=== PATIENT | female | born 1970 | race African-American/Black ===

== ENCOUNTER 2019-10-21 07:44 | Emergency (ER) | payer BC, OTHER ==
[2019-10-21] MEDS ORDERED: diphenhydrAMINE 50 MG/ML SDV IVPUSH ONE (08:09)
[2019-10-21] MEDS ORDERED: HYDROmorphone 0.5 MG/0.5 ML Syringe IVPUSH ONE (08:10)
[2019-10-21] MEDS ORDERED: Metoclopramide 10 MG/2 ML SDV IVPUSH ONE (08:10)
--- NOTE | 2019-10-21 08:10 | EDM.PDOC ---
ED HPI GENERAL MEDICAL PROBLEM - General Chief Complaint: Headache Stated Complaint: HEADACHE Time Seen by Provider: 10/21/19 08:04 Source of Information: Reports: Patient History Limitations: Reports: No Limitations - History of Present Illness INITIAL COMMENTS - FREE TEXT/NARRATIVE: 49-year-old female of descent whom does not speak [place]ian presents to the ED with a generalized frontal headache. Apparently has been present for 2 days according to her who acts as her spanish medical interpreter. No recent falls or closed head injuries. She is prone prone to bad headaches. Associated nausea without any vomiting. Did not eat or drink much yesterday and nothing so far today. Has taken only some Tylenol for headache relief yesterday. He did not help. Patient has had some recent x-rays of her left upper teeth but apparently no problems were identified on Tuesday or 2 days ago. Patient is mildly photosensitive. Again nausea without any vomiting. No change in visual acuity. No change in ability to walk. Patient denies taking any medications. Denies possibility of . Onset: Gradual Onset Date: 10/20/19 Duration: Hour(s):, Constant Location: Reports: Head (Primarily a severe headache across the frontal aspects of both sides of her scalp) Quality: Reports: Ache ( mildly retro-orbital he. Temporal aspect of the scalp as well.), Throbbing, Other Severity: Moderate (Pounding 8 out of 10) Improves with: Reports: Rest Worsens with: Reports: Other Context: Denies: Activity, Exercise, Lifting, Sick Contact, Trauma Associated Symptoms: Reports: Headaches, Loss of Appetite, Malaise, Nausea/Vomiting (Nausea without vomiting). 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 Denies: Fever, Chills, Malaise, Weakness HEENT: Reports: Other (Photosensitivity.). 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 Heart rate 97 and sinus respiratory to is 13 with O2 sats of 97% room air) Eye Exam: Bilateral Eye: Normal Inspection, PERRL (No gaze palsy.) Throat/Mouth: Normal Inspection, Normal Lips, Normal Oropharynx, Other Head Exam: Atraumatic (Tongue is mildly dry.), Normocephalic Neck: Normal Inspection, Supple, Non-Tender, Full Range of Motion. No: Lymphadenopathy (L), Lymphadenopathy (R) Respiratory/Chest: No Respiratory Distress, Lungs Clear, Normal Breath Sounds Cardiovascular: Normal Peripheral Pulses, Regular Rate, Rhythm, No Edema, No Gallop, No Murmur, No Rub Neuro Exam (Abbreviated): Alert, Oriented, CN II-XII Intact, Normal Cognition, Other (She was able to perform alternating movements with no problem no pronator drift. [id number] assessment normal cranial nerves II to XII intact) Extremities: Normal Inspection, Normal Range of Motion, Non-Tender Psychiatric: Flat Affect Skin Exam: Warm, Dry, Intact, Normal Color, No Rash Course - Vital Signs Last Recorded V/S: Last Vital Signs Temp 36.7 C 10/21/19 07:51 Pulse 76 10/21/19 10:06 Resp 13 10/21/19 07:51 BP 165/76 H 10/21/19 10:06 Pulse Ox 100 10/21/19 10:06 - Orders/Labs/Meds Meds: Medications Discontinued Medications Generic Name Dose Route Start Last Admin Trade Name Ly PRN Reason Stop Dose Admin Diphenhydramine HCl 25 mg 10/21/19 08:09 10/21/19 08:19 Benadryl IVPUSH 10/21/19 08:10 25 mg ONETIME ONE Administration Hydromorphone HCl 0.5 mg 10/21/19 08:10 10/21/19 08:17 Dilaudid IVPUSH 10/21/19 08:11 0.5 mg ONETIME ONE Administration Dextrose/Sodium Chloride 1,000 mls @ 999 mls/hr 10/21/19 08:15 10/21/19 08:17 Dextrose 5%-Normal Saline IV 999 mls/hr ASDIRECTED KAITY Administration Ketorolac Tromethamine 30 mg 10/21/19 08:15 10/21/19 08:20 Toradol IVPUSH 30 mg ONETIME KAITY Administration Metoclopramide HCl 7.5 mg 10/21/19 08:10 10/21/19 08:20 Reglan IVPUSH 10/21/19 08:11 7.5 mg ONETIME ONE Administration - Radiology Interpretation Free Text/Narrative:: 49-year-old female presents to the ED with complaint of a diffuse frontal temporal headache bilaterally perhaps a little worse on the left side as compared to the right. This started yesterday and is persisted all night long. She has not ate or drank much in the last 24 to 48 hours. Prone to headaches. Has not taken any medication today for this headache. Neuro exam is grossly normal. Note history and physical exam were somewhat difficult to obtain due to the patient not speaking [place]ian. 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 Plan patient will receive IV D5 normal saline at open. Given Benadryl 25 mg IV with Toradol 30 mg IV. Given Reglan 7.5 mg IV and Dilaudid 0.5 mg IV for headache relief. - Re-Assessments/Exams Free Text/Narrative Re-Assessment/Exam: 10/21/19 09:22 patient reports her headache is completely gone at this time. She has completed her IV infusion of 1 L. She will be discharged home the care of her to go to sleep for couple hours to break the headache cycle. She will then resume regular diet. Departure - Departure Time of Disposition: :22 Disposition: Home, Self-Care 01 Condition: Fair Clinical Impression: Migraine headache Qualifiers: Migraine type: without aura Status migrainosus presence: without status migrainosus Intractability: not intractable Qualified Code(s): G43.009 - Migraine without aura, not intractable, without status migrainosus - Discharge Information *PRESCRIPTION DRUG MONITORING PROGRAM REVIEWED*: Not Applicable *COPY OF PRESCRIPTION DRUG MONITORING REPORT IN PATIENT MIS: Not Applicable Instructions: Migraine Headache Referrals: PCP,None [Primary Care Provider] - Forms: ED Department Discharge Additional Instructions: Evaluation in the emergency room today in regards to a persistent headache for the last 36 hours across the frontal temporal aspect of both sides of the head. Neurological examination was grossly normal. You were treated with intravenous fluids and medications Toradol 30 mg with Benadryl 25 mg IV and Reglan 7.5 mg IV and Dilaudid 0.5 mg IV for acute headache relief. Suggest home to sleep for a couple of hours to break the headache cycle. Then try and resume regular diet and plenty of fluids today. Sepsis Event Note (ED) - Evaluation Sepsis Screening Result: No Definite Risk - Focused Exam Vital Signs: Vital Signs Temp Pulse Resp BP Pulse Ox 10/21/19 10:06 76 165/76 H 100 10/21/19 08:25 81 165/94 H 95 10/21/19 07:51 36.7 C 97 13 167/104 H 97
[2019-10-21] MEDS ORDERED: Dextrose 5%-0.9% NaCl 1,000 ML IV SCH (08:15)
[2019-10-21] MEDS ORDERED: Ketorolac 30 MG/ML SDV IVPUSH SCH (08:15)
== END 2019-10-21 10:08 | disposition home or self-care (01) ==
LOC: JD.ED 07:44
DX: G43.009 Migraine without aura, not intractable, without status migrainosus (principal)
CPT/HCPCS: 96361; 96374; 96375; 99283; J1170; J1200; J1885; J2765; J7042

== ENCOUNTER 2019-10-30 10:44 | Emergency (ER) | payer OTHER ==
[2019-10-30] MEDS ORDERED: Sodium Chloride 0.9% 10 ML Syringe FLUSH PRN (11:22)
[2019-10-30] MEDS ORDERED: Sodium Chloride 0.9% 1,000 ML IV ONE (11:22)
[2019-10-30] MEDS ORDERED: diphenhydrAMINE 50 MG/ML SDV IVPUSH ONE (11:22)
[2019-10-30] MEDS ORDERED: Metoclopramide 10 MG/2 ML SDV IVPUSH ONE (11:22)
[2019-10-30] MEDS ORDERED: Ketorolac 30 MG/ML SDV IVPUSH ONE (11:22)
--- NOTE | 2019-10-30 11:38 | EDM.PDOC ---
ED HPI GENERAL MEDICAL PROBLEM - General Chief Complaint: Headache Stated Complaint: HEADACHE Time Seen by Provider: 10/30/19 11:09 Source of Information: Reports: Patient, RN Notes Reviewed History Limitations: Reports: Language Barrier (pt is primarily non italian speaking; in room to translate.) - History of Present Illness INITIAL COMMENTS - FREE TEXT/NARRATIVE: Patient is a 49-year-old female who presents to the ED for the evaluation of her headache. Patient is primarily non-Barbadian speaking, but her is in the room to translate for us. He states that she developed a headache, mostly on the right side of her head today. She had one like this last Tuesday and came to this ER for management. Medications were given, and this seemed to help her at that time. The states she is not known to have headaches in the past. So she does not have a history of migraines. She does not take any regular medications. He denies any other past medical history that his has. notes that she was feeling well up until these headaches started, but she is not had any fevers or chills, cough/shortness of breath, nausea/vomiting/diarrhea. She might be a little light sensitive, but is not sound sensitive. Her blood pressure at time of triage was 138/86, the and a recheck of this elicited 159/99. Right Headache Pain Score (Numeric/FACES): 4 - Related Data Allergies Allergy/AdvReac Type Severity Reaction Status Date / Time No Known Allergies Allergy Verified 10/21/19 08:03 Home Meds: Home Meds Acetaminophen/Butalbital/Caff [Fioricet 325-50-40 MG] 1 each PO Q4H PRN #15 tab 10/30/19 [Rx] Past Medical History Neurological History: Reports: Migraines Social & Family History - Family History Family Medical History: Noncontributory - Tobacco Use Smoking Status *Q: Never Smoker - Caffeine Use Caffeine Use: Reports: Soda, Tea - Recreational Drug Use Recreational Drug Use: No - Living Situation & Occupation Living situation: Reports: Occupation: Unemployed ED ROS GENERAL - Review of Systems Review Of Systems: Comprehensive ROS is negative, except as noted in HPI. - Physical Exam Exam: See Below Exam Limited By: No Limitations General Appearance: Alert, WD/WN, No Apparent Distress Eye Exam: Bilateral Eye: EOMI, Normal Inspection, PERRL Throat/Mouth: Normal Inspection, Normal Lips, Normal Teeth, Normal Gums, Normal Oropharynx, Normal Voice, No Airway Compromise Head Exam: Atraumatic, Normocephalic Neck: Normal Inspection Respiratory/Chest: No Respiratory Distress, Lungs Clear, Normal Breath Sounds, No Accessory Muscle Use, Chest Non-Tender Cardiovascular: Normal Peripheral Pulses, Regular Rate, Rhythm, No Murmur Neuro Exam (Abbreviated): Alert, Oriented, Normal Cognition, No Motor/Sensory Deficits Extremities: Normal Inspection, Normal Capillary Refill Psychiatric: Normal Affect, Normal Mood Skin Exam: Warm, Dry, Intact, Normal Color, No Rash Course - Vital Signs Last Recorded V/S: Last Vital Signs Temp 98.6 F 10/30/19 10:59 Pulse 86 10/30/19 10:59 Resp 14 10/30/19 10:59 BP 138/86 10/30/19 10:59 Pulse Ox 98 10/30/19 10:59 - Orders/Labs/Meds Orders: Active Orders 24 hr Category Date Time Status Peripheral IV Care [RC] . DIRECTED Care 10/30/19 11:22 Active Sodium Chloride 0.9% [Saline Flush] Med 10/30/19 11:22 Active 10 ml FLUSH ASDIRECTED PRN Peripheral IV Insertion Adult [OM.PC] Routine Oth 10/30/19 11:22 Ordered Medication Orders Sodium Chloride (Saline Flush) 10 ml FLUSH ASDIRECTED PRN PRN Reason: Keep Vein Open Last Admin: 10/30/19 11:32 Dose: 10 ml Documented by: EL Labs: Laboratory Tests 10/30/19 10/30/19 Range/Units 11:34 11:34 WBC 6.16 (3.98-10.04) K/mm3 RBC 4.43 (3.98-5.22) M/mm3 Hgb 12.0 (11.2-15.7) gm/dl Hct 36.5 (34.1-44.9) % MCV 82.4 (79.4-94.8) fl MCH 27.1 (25.6-32.2) pg MCHC 32.9 (32.2-35.5) g/dl RDW Std Deviation 38.3 (36.4-46.3) fL Plt Count 287 (182-369) K/mm3 MPV 9.9 (9.4-12.3) fl Neut % (Auto) 34.8 (34.0-71.1) % Lymph % (Auto) 48.4 (19.3-51.7) % Warren % (Auto) 10.9 (4.7-12.5) % Eos % (Auto) 5.2 (0.7-5.8) Baso % (Auto) 0.5 (0.1-1.2) % Neut # (Auto) 2.15 (1.56-6.13) K/mm3 Lymph # (Auto) 2.98 (1.18-3.74) K/mm3 Warren # (Auto) 0.67 H (0.24-0.36) K/mm3 Eos # (Auto) 0.32 (0.04-0.36) K/mm3 Baso # (Auto) 0.03 (0.01-0.08) K/mm3 Sodium 135 L (136-145) mEq/L Potassium 3.6 (3.5-5.1) mEq/L Chloride 98 (98-107) mEq/L Carbon Dioxide 24 (21-32) mEq/L Anion Gap 16.6 H (5-15) BUN 12 (7-18) mg/dL Creatinine 1.0 (0.55-1.02) mg/dL Est Cr Clr Drug Dosing TNP Estimated GFR (MDRD) > 60 (>60) mL/min BUN/Creatinine Ratio 12.0 L (14-18) Glucose 271 H (74-106) mg/dL Calcium 8.9 (8.5-10.1) mg/dL Magnesium 1.8 (1.8-2.4) mg/dl Total Bilirubin 0.5 (0.2-1.0) mg/dL AST 25 (15-37) U/L ALT 32 (14-59) U/L Alkaline Phosphatase 64 (46-116) U/L Total Protein 7.8 (6.4-8.2) g/dl Albumin 3.5 (3.4-5.0) g/dl Globulin 4.3 gm/dL Albumin/Globulin Ratio 0.8 L (1-2) Meds: Medications Generic Name Dose Route Start Last Admin Trade Name Freq PRN Reason Stop Dose Admin Sodium Chloride 10 ml 10/30/19 11:22 10/30/19 11:32 Saline Flush FLUSH 10 ml ASDIRECTED PRN Administration Keep Vein Open Discontinued Medications Generic Name Dose Route Start Last Admin Trade Name Ly PRN Reason Stop Dose Admin Diphenhydramine HCl 25 mg 10/30/19 11:22 10/30/19 11:40 Benadryl IVPUSH 10/30/19 11:23 25 mg ONETIME ONE Administration Sodium Chloride 1,000 mls @ 999 mls/hr 10/30/19 11:22 10/30/19 11:31 Normal Saline IV 10/30/19 12:22 999 mls/hr ASDIRECTED ONE Administration Ketorolac Tromethamine 30 mg 10/30/19 11:22 10/30/19 11:32 Toradol IVPUSH 10/30/19 11:23 30 mg ONETIME ONE Administration Metoclopramide HCl 10 mg 10/30/19 11:22 10/30/19 11:32 Reglan IVPUSH 10/30/19 11:23 10 mg ONETIME ONE Administration - Re-Assessments/Exams Free Text/Narrative Re-Assessment/Exam: 10/30/19 11:38 Patient presents to the ED for evaluation of her headache. She will be given some IV fluids, along with IV medications for management, CBC, CMP and magnesium to be obtained for initial laboratory evaluation. 10/30/19 12:44 Patient notes that her headache is much better. Blood sugar is mildly elevated at 217, the states that she did eat a little bit of bread prior to coming to the ER. She is ready to go home at this time. Departure - Departure Time of Disposition: 12:48 Disposition: Home, Self-Care 01 Condition: Good Clinical Impression: Tension-type headache, Elevated BP without diagnosis of hypertension - Discharge Information *PRESCRIPTION DRUG MONITORING PROGRAM REVIEWED*: No *COPY OF PRESCRIPTION DRUG MONITORING REPORT IN PATIENT MIS: No Instructions: Tension Headache, Adult, [id number], Preventing Hypertension Referrals: PCP,None [Primary Care Provider] - Forms: ED Department Discharge Additional Instructions: You were evaluated in the ED for your headache. You were given a combination of medications and IV fluid for management. This did seem to provide you pretty good relief of your symptoms. Recommend that you go home and rest in a quiet, darkened room. Try also to keep well hydrated. Lab evaluation demonstrated no focal abnormalities like electrolyte issues that could be causing your headaches. Your blood pressure was mildly elevated while in the ER, I recommend that you go home and monitor your blood pressure in a calm restful state, after you have been sitting for at least 5 minutes. Keep a record of this, and establish care with a primary care provider for further management of your overall health and wellbeing. You may or may not need to be started on some blood pressure medications. You were given a prescription for Fioricet, this is a antimigraine medication for your headache specifically, you may take 1 or 2 tablets at the onset of a headache every 4 hours, do not exceed 6 tablets in a 24-hour time span. Please return to the ED if your symptoms should change or worsen. Sepsis Event Note (ED) - Evaluation Sepsis Screening Result: No Definite Risk - Focused Exam Vital Signs: Vital Signs Temp Pulse Resp BP Pulse Ox 10/30/19 10:59 98.6 F 86 14 138/86 98 - My Orders Last 24 Hours: My Active Orders 10/30/19 11:22 Peripheral IV Care [RC] . DIRECTED Sodium Chloride 0.9% [Saline Flush] 10 ml FLUSH ASDIRECTED PRN Peripheral IV Insertion Adult [OM.PC] Routine - Assessment/Plan Last 24 Hours: My Active Orders 10/30/19 11:22 Peripheral IV Care [RC] . DIRECTED Sodium Chloride 0.9% [Saline Flush] 10 ml FLUSH ASDIRECTED PRN Peripheral IV Insertion Adult [OM.PC] Routine
== END 2019-10-30 13:09 | disposition home or self-care (01) ==
LOC: JD.ED 10:44
DX: G44.209 Tension-type headache, unspecified, not intractable (principal); R03.0 Elevated blood-pressure reading, without diagnosis of hypertension
CPT/HCPCS: 36415; 80053; 83735; 85025; 96361; 96374; 96375; 99284; J1200; J1885; J2765; J7030; 99283

== ENCOUNTER 2020-01-09 15:16 | Emergency (ER) | payer OTHER ==
--- NOTE | 2020-01-09 17:34 | EDM.PDOC ---
ED HPI GENERAL MEDICAL PROBLEM - General Chief Complaint: Cardiovascular Problem Stated Complaint: HEADACHE/HIGH BP Time Seen by Provider: 01/09/20 17:24 Source of Information: Reports: Patient History Limitations: Reports: No Limitations - History of Present Illness INITIAL COMMENTS - FREE TEXT/NARRATIVE: 49-year-old female of descent. She presents to the ED with a diffuse right hemicranial headache which she reports has been constant for the last month. History was primarily relayed to me by her who speaks her tribe tongue. Patient apparently does not speak [place]ic but seems to have a pretty good grasp and understanding of the [place]ic language. Worse the last 24 to 48 hours with constant throbbing pulsating particular right parietal occipital lobe. Associated mild photophobia and nausea. No vomiting has occurred. 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 Headache is worse when she bends over. She was seen through the ED in the latter part of October with headache symptoms which have only worsened since that time. Patient has been taking Fioricet tablets on a as needed basis for headache pain relief but indicates they are not helping at all anymore. She was identified to be hypertensive at that time but not started on any antihypertensive meds. Blood pressure at this time is markedly elevated at 178/110. This is after being in the ED for an hour and a half and relaxing. Initial blood pressure was reported as 188/111. Lab test done in October reviewed and she did not have any renal dysfunction at that time. She denies any possibility of . No previous abdominal surgery. She states blood pressure problems run in her family. She currently is on no medication. No history of migraine headaches. Onset: Other ( Headaches gradually getting worse over the last 2 months. More constant the last month. ) Duration: Day(s): Location: Reports: Head (A right hemicranial headache parieto-occipital.) Quality: Reports: Ache, Throbbing, Other (Seating. She has no history of migraines.) Improves with: Reports: Rest (Lying flat feels the best.) Worsens with: Reports: Other (Bending over and standing back up seems to make it worse.) Context: Reports: Other (Continues occurrence of). Denies: Activity, Exercise, Lifting, Sick Contact, Trauma Associated Symptoms: Reports: Headaches, Loss of Appetite, Malaise, Nausea/Vomiting. Denies: Confusion ( almost daily headaches since early October.), Chest Pain, Cough, cough w sputum, Diaphoresis, Fever/Chills, Rash, Seizure (Nausea with no vomiting), Shortness of Breath, Syncope, Weakness Treatments [employer]: Reports: Acetaminophen Head Pain Score (Numeric/FACES): 9 - Related Data Allergies Allergy/AdvReac Type Severity Reaction Status Date / Time No Known Allergies Allergy Verified 01/09/20 15:29 Home Meds: Home Meds Acetaminophen/Butalbital/Caff [Fioricet 325-50-40 MG] 1 each PO Q4H PRN #15 tab 10/30/19 [Rx] Cefdinir [Omnicef] 300 mg PO BID #20 cap 01/09/20 [Rx] Losartan [Cozaar] 100 mg PO DAILY #30 tab 01/09/20 [Rx] amLODIPine [Norvasc] 10 mg PO DAILY #30 tab 01/09/20 [Rx] Past Medical History - Past Health History Medical/Surgical History: Denies Medical/Surgical History Neurological History: Reports: Migraines Social & Family History - Family History Family Medical History: No Pertinent Family History - Tobacco Use Tobacco Use Status *Q: Never Tobacco User - Caffeine Use Caffeine Use: Reports: Coffee - Recreational Drug Use Recreational Drug Use: No - Living Situation & Occupation Living situation: Reports: Occupation: Unemployed ED ROS GENERAL - Review of Systems Review Of Systems: See Below Constitutional: Reports: Fatigue, Decreased Appetite. Denies: Fever, Chills, Malaise, Weakness HEENT: Reports: Other. Denies: Glasses (Mild photophobia.) Respiratory: Reports: No Symptoms Cardiovascular: Reports: No Symptoms Endocrine: Reports: Fatigue GI/Abdominal: Reports: Nausea : Reports: No Symptoms Musculoskeletal: Reports: Neck Pain, Back Pain, Other (Vaginal knee) Skin: Reports: No Symptoms ( pain) Neurological: Reports: Headache. Denies: Confusion, Dizziness, Numbness, Paresthesia, Pre-Existing Deficit, Seizure, Syncope, Tingling, Trouble Speaking, Difficulty Walking, Weakness Psychiatric: Reports: No Symptoms Hematologic/Lymphatic: Reports: No Symptoms Immunologic: Reports: No Symptoms ED EXAM, GENERAL - Physical Exam Exam: See Below Exam Limited By: No Limitations General Appearance: Alert, WD/WN, No Apparent Distress, Other (Temperature is 36.1. Heart rate was 77 and sinus with respiratory of 22/min O2 sats 100% room air BP initially 188 111 it has not come down much in the last hour and a half in observation at. It is still 176 109. This suggest the patient does not fact have chronic essential hypertension and is currently not being treated for this.) Eye Exam: Right Eye: Other (Attempted to look at her fundi but this proved to be futile due to significant pupillary contraction and myosis. I could visualize only in very minimal portion of either ), Bilateral Eye: Normal Inspection, PERRL (No blepharal pallor or scleral icterus.) Ears: Normal TMs Throat/Mouth: Normal Inspection, Normal Lips, Normal Teeth, Normal Oropharynx, Other Head: Atraumatic, Normocephalic (Uvula is in the midline), Facial Tenderness. No: Facial Swelling Neck: Normal Inspection, Supple, Non-Tender, Full Range of Motion. No: Carotid Bruit, Lymphadenopathy (L), Lymphadenopathy (R), Thyromegaly Respiratory/Chest: No Respiratory Distress, Lungs Clear, Normal Breath Sounds, Chest Non-Tender Cardiovascular: Normal Peripheral Pulses, Regular Rate, Rhythm, No Edema, No Gallop, No Murmur, No Rub Peripheral Pulses: 2+: Carotid (L), Carotid (R), Posterior Tibial (L), Posterior Tibial (R), Dorsalis Pedis (L), Dorsalis Pedis (R) GI/Abdominal: Normal Bowel Sounds, Soft, Non-Tender, No Organomegaly, No Mass, Pelvis Stable, Other (No surgical scars.). No: Guarding, Rigid, Rebound Back Exam: Normal Inspection, Full Range of Motion. No: CVA Tenderness (L), CVA Tenderness (R) Extremities: Normal Inspection, Normal Range of Motion, Non-Tender, No Pedal Edema Neurological: Alert, Oriented, CN II-XII Intact, Normal Cognition Psychiatric: Normal Affect, Normal Mood Skin Exam: Warm, Dry, Intact, Normal Color, No Rash #1 Interpretation EKG Date: 01/09/20 Time: 17:58 Rhythm: NSR Rate (Beats/Min): 72 [place]: Normal QRS: Other (RSR prime wave V1 consider normal variant) ST-T: Other (T wave inversion V3 to V6 leads as well as leads II, III and aVF. T wave flattening in leads I and aVL consider possibility of inferior apical wall ischemia.) Course - Vital Signs Last Recorded V/S: Last Vital Signs Temp 36.1 C 01/09/20 15:22 Pulse 68 01/09/20 16:45 Resp 22 H 01/09/20 15:22 BP 246/110 H 01/09/20 18:25 Pulse Ox 99 01/09/20 16:45 - Orders/Labs/Meds Orders: Active Orders 24 hr Category Date Time Status EKG Documentation Completion [RC] STAT Care 01/09/20 17:40 Active Sodium Chloride 0.9% [Normal Saline] 1,000 ml Med 01/09/20 17:45 Active IV ASDIRECTED Medication Orders Sodium Chloride (Normal Saline) 1,000 mls @ 150 mls/hr IV ASDIRECTED KAITY Last Admin: 01/09/20 18:23 Dose: 150 mls/hr Documented by: ESTEVAN Labs: Laboratory Tests 01/09/20 01/09/20 01/09/20 Range/Units 17:45 18:00 18:00 WBC 7.78 (3.98-10.04) K/mm3 RBC 4.56 (3.98-5.22) M/mm3 Hgb 12.2 (11.2-15.7) gm/dl Hct 38.1 (34.1-44.9) % MCV 83.6 (79.4-94.8) fl MCH 26.8 (25.6-32.2) pg MCHC 32.0 L (32.2-35.5) g/dl RDW Std Deviation 39.7 (36.4-46.3) fL Plt Count 404 H D (182-369) K/mm3 MPV 9.6 (9.4-12.3) fl Neut % (Auto) 33.8 L (34.0-71.1) % Lymph % (Auto) 43.8 (19.3-51.7) % [place] % (Auto) 8.1 (4.7-12.5) % Eos % (Auto) 13.5 H (0.7-5.8) Baso % (Auto) 0.5 (0.1-1.2) % Neut # (Auto) 2.63 (1.56-6.13) K/mm3 Lymph # (Auto) 3.41 (1.18-3.74) K/mm3 [place] # (Auto) 0.63 H (0.24-0.36) K/mm3 Eos # (Auto) 1.05 H (0.04-0.36) K/mm3 Baso # (Auto) 0.04 (0.01-0.08) K/mm3 Sodium 137 (136-145) mEq/L Potassium 4.5 (3.5-5.1) mEq/L Chloride 99 (98-107) mEq/L Carbon Dioxide 28 (21-32) mEq/L Anion Gap 14.5 (5-15) BUN 8 (7-18) mg/dL Creatinine 0.8 (0.55-1.02) mg/dL Est Cr Clr Drug Dosing TNP Estimated GFR (MDRD) > 60 (>60) mL/min BUN/Creatinine Ratio 10.0 L (14-18) Glucose 125 H (74-106) mg/dL Calcium 9.9 (8.5-10.1) mg/dL Total Bilirubin 0.3 (0.2-1.0) mg/dL AST 26 (15-37) U/L ALT 24 (14-59) U/L Alkaline Phosphatase 95 (46-116) U/L Troponin I < 0.017 (0.00-0.056) ng/mL C-Reactive Protein 1.2 H* (<1.0) mg/dL Total Protein 8.8 H (6.4-8.2) g/dl Albumin 3.6 (3.4-5.0) g/dl Globulin 5.2 gm/dL Albumin/Globulin Ratio 0.7 L (1-2) TSH 3rd Generation (0.358-3.74) uIU/mL Urine Color Yellow (Yellow) Urine Appearance Clear (Clear) Urine pH 6.5 (5.0-8.0) Ur Specific [place] 1.015 (1.005-1.030) Urine Protein Negative (Negative) Urine Glucose (UA) 2+ H (Negative) Urine Ketones Negative (Negative) Urine Occult Blood Negative (Negative) Urine Nitrite Negative (Negative) Urine Bilirubin Negative (Negative) Urine Urobilinogen 0.2 (0.2-1.0) Ur Leukocyte Esterase Negative (Negative) Urine RBC 0-5 (0-5) /hpf Urine WBC 0-5 (0-5) /hpf Ur Squamous Epith Cells 5-10 H (0-5) /hpf Urine Bacteria Moderate H (FEW) /hpf Urine Mucus Few (FEW) /hpf 01/09/20 Range/Units 18:00 WBC (3.98-10.04) K/mm3 RBC (3.98-5.22) M/mm3 Hgb (11.2-15.7) gm/dl Hct (34.1-44.9) % MCV (79.4-94.8) fl MCH (25.6-32.2) pg MCHC (32.2-35.5) g/dl RDW Std Deviation (36.4-46.3) fL Plt Count (182-369) K/mm3 MPV (9.4-12.3) fl Neut % (Auto) (34.0-71.1) % Lymph % (Auto) (19.3-51.7) % Crosby % (Auto) (4.7-12.5) % Eos % (Auto) (0.7-5.8) Baso % (Auto) (0.1-1.2) % Neut # (Auto) (1.56-6.13) K/mm3 Lymph # (Auto) (1.18-3.74) K/mm3 [place] # (Auto) (0.24-0.36) K/mm3 Eos # (Auto) (0.04-0.36) K/mm3 Baso # (Auto) (0.01-0.08) K/mm3 Sodium (136-145) mEq/L Potassium (3.5-5.1) mEq/L Chloride (98-107) mEq/L Carbon Dioxide (21-32) mEq/L Anion Gap (5-15) BUN (7-18) mg/dL Creatinine (0.55-1.02) mg/dL Est Cr Clr Drug Dosing Estimated GFR (MDRD) (>60) mL/min BUN/Creatinine Ratio (14-18) Glucose (74-106) mg/dL Calcium (8.5-10.1) mg/dL Total Bilirubin (0.2-1.0) mg/dL AST (15-37) U/L ALT (14-59) U/L Alkaline Phosphatase (46-116) U/L Troponin I (0.00-0.056) ng/mL C-Reactive Protein (<1.0) mg/dL Total Protein (6.4-8.2) g/dl Albumin (3.4-5.0) g/dl Globulin gm/dL Albumin/Globulin Ratio (1-2) TSH 3rd Generation 1.079 (0.358-3.74) uIU/mL Urine Color (Yellow) Urine Appearance (Clear) Urine pH (5.0-8.0) Ur Specific [place] (1.005-1.030) Urine Protein (Negative) Urine Glucose (UA) (Negative) Urine Ketones (Negative) Urine Occult Blood (Negative) Urine Nitrite (Negative) Urine Bilirubin (Negative) Urine Urobilinogen (0.2-1.0) Ur Leukocyte Esterase (Negative) Urine RBC (0-5) /hpf Urine WBC (0-5) /hpf Ur Squamous Epith Cells (0-5) /hpf Urine Bacteria (FEW) /hpf Urine Mucus (FEW) /hpf Meds: Medications Generic Name Dose Route Start Last Admin Trade Name Ly PRN Reason Stop Dose Admin Sodium Chloride 1,000 mls @ 150 mls/hr 01/09/20 17:45 01/09/20 18:23 Normal Saline IV 150 mls/hr ASDIRECTED KAITY Administration Discontinued Medications Generic Name Dose Route Start Last Admin Trade Name Ly PRN Reason Stop Dose Admin Amlodipine Besylate 10 mg 01/09/20 17:40 01/09/20 18:25 Norvasc PO 01/09/20 17:41 10 mg NOW STA Administration Diphenhydramine HCl 25 mg 01/09/20 17:57 01/09/20 18:18 Benadryl IVPUSH 01/09/20 17:58 25 mg ONETIME ONE Administration Hydralazine HCl 10 mg 01/09/20 17:39 01/09/20 18:15 Apresoline IVPUSH 01/09/20 17:40 10 mg ONETIME ONE Administration Hydromorphone HCl 1 mg 01/09/20 17:56 01/09/20 18:20 Dilaudid IVPUSH 01/09/20 17:57 1 mg ONETIME ONE Administration Losartan Potassium 100 mg 01/09/20 17:41 01/09/20 18:24 Cozaar PO 01/09/20 17:42 100 mg NOW STA Administration Metoclopramide HCl 7.5 mg 01/09/20 17:56 01/09/20 18:13 Reglan IVPUSH 01/09/20 17:57 7.5 mg ONETIME ONE Administration - Radiology Interpretation Free Text/Narrative:: 49-year-old female of descent presents to the ED with basically a chronic daily headache for at least a month and headaches dating back to early October on a near daily basis. Headache has been gradually intensifying is constant described as throbbing and pulsating and worse over the last 48 hours. She feels it primarily in the right hemicranium particular parieto-occipital lobe. Associated mild stiffness of right neck on full flexion. 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 There is been no obvious change in balance or visual acuity. Associated nausea due to the intensity headache with no vomiting. Patient has been using Fioricet intermittently for headache relief but currently is not helping at all. Exam does not reveal any obvious acute problems with heart lungs abdomen or extremities. Cranial nerves II to XII are intact. Attempts at endoscopy done but due to pupillary constriction I could not visualize the retina with any degree of certainty in terms of AV nicking or abnormalities to suggest papilledema. Plan she will have repeat labs performed and a urinalysis. CT head will be done. She received IV hydralazine 10 mg and oral amlodipine 10 mg and losartan 100 mg by mouth. She will also receive medications for headache Dilaudid 1 mg IV with Benadryl 25 mg IV and Reglan 7.5 mg IV. - Re-Assessments/Exams Free Text/Narrative Re-Assessment/Exam: 01/09/20 19:44 Hematology reveals a normal white count at 7.78 with 33.8% neutrophils. There is a mild right shift with 43.8% lymphocytes. This suggest possible underlying viral infection. Hemoglobin is 12.2 with hematocrit of 38.1. Sodium is 137 with a potassium of 4.5. Chloride was 99 with a bicarb of 28. Anion gap is 14.5 with a BUN of 8 and creatinine of 0.8. GFR is greater than 60. Glucose is 125 calcium is 9.9 liver function is normal. Troponin I was less than 0.017 and C-reactive protein was 1.2. Total protein of 8.8 with an albumin fraction of 3.6. TSH is 1.079 normal. Urinalysis came back 2+ glucosuria with 5-10 squamous epithelial cells and moderate bacteria. Because of the glucosuria a glycosylated protein will be ordered to make sure the patient does not have nondiagnosed type 2 diabetes. ET of the head has been completed. Ventricles along with the basal cisterns and sulci over the convexities appear to be within normal limits for the patient's age. No abnormal parenchymal densities are seen. No evidence of intracranial hemorrhage. No midline shift or mass-effect is seen. Bone window settings reviewed. An air-fluid level is seen within the right maxillary sinus with fair amount of mucosal thickening. Mild mucosal thickening is seen anteriorly within the right ethmoid sinus as well. Visualized mastoid sinuses are clear. No acute calvarial findings are seen. 01/09/20 19:53 I have discussed the findings with the patient's who will relay the information to her due to the language barrier. She reports to him that her headache is completely gone. Blood pressure is still mildly elevated at 177/98. He has received losartan 100 mg by mouth which I am going to continue once daily every morning. In addition she will take amlodipine 10 mg once daily at bedtime. She will be placed on Omnicef 300 mg twice daily for the next 10 days to clear up sinus infection right maxillary and ethmoid/sphenoid sinuses on the right side. From what I can understand [facility] but does not have a primary care provider. Advised to follow-up with Dr. Grace Jonas or the new family physician that is starting on the family medicine unit. She is to call [phone] to make an appointment. Departure - Departure Time of Disposition: 19:55 Disposition: Home, Self-Care 01 Condition: Fair Clinical Impression: Chronic daily headache, Uncontrolled stage 2 hypertension Sinusitis, acute Qualifiers: Sinusitis location: maxillary Recurrence: non-recurrent Qualified Code(s): J01.00 - Acute maxillary sinusitis, unspecified Prescriptions: Losartan [Cozaar] 100 mg PO DAILY #30 tab amLODIPine [Norvasc] 10 mg PO DAILY #30 tab Cefdinir [Omnicef] 300 mg PO BID #20 cap Instructions: Sinus Headache, [id number], Managing Your Hypertension, Hypertension, Adult Referrals: PCP,None [Primary Care Provider] - Forms: ED Department Discharge Additional Instructions: Evaluation in the emergency room today in regards to a persistent chronic right- sided headache felt throughout the right side of your face and head for the last month. Intermittent headaches dating back to early October of this year. You were seen in the emergency department in the latter part of October you were identified to have elevated blood pressure and advised follow-up in clinic. Blood pressure today is markedly elevated at 210/110. Normal should be always under 150 on the top number and ideally under 90 all the time on the bottom number. You received medications intravenously to bring your blood pressure under control tonight by hydralazine 10 mg IV. You also received oral medications amlodipine 10 mg and losartan 100 mg by mouth. These will start to lower your blood pressure over the next 6 to 24 hours. You will need to take th e same medications on a daily basis with the amlodipine 10 mg in the morning and the losartan 100 mg tablet at bedtime. You will have to follow-up with a primary care provider who has some expertise in high blood pressure control. I would suggest Dr. Grace Jonas or the [facility] physician who is started on the third floor of our hospital. Please call [phone] to arrange an appointment[address] scan of your head tonight demonstrated significant sinus infection involving the right maxillary and right ethmoid and sphenoid sinuses behind your eyes in the midline. This in itself is likely the cause of your chronic right-sided headache. Problem is that your elevated blood pressure might also be causing chronic daily headaches. You need to take antibiotic Omnicef 300 mg twice daily for the next 10 days to clear up sinus infection. Suggest follow-up in the clinic within the next 7 to 10 days for blood pressure review. May take Tylenol 650 mg every 4-6 hours as needed for headache/pain relief. You should avoid Motrin or Aleve as these medications have an effect on the kidney to elevate your blood pressure. Sepsis Event Note (ED) - Evaluation Sepsis Screening Result: No Definite Risk - Focused Exam Vital Signs: Vital Signs Temp Pulse Resp BP BP Pulse Ox 01/09/20 18:25 246/110 H 01/09/20 18:24 170/114 H 01/09/20 16:45 68 187/106 H 99 01/09/20 15:22 36.1 C 77 22 H 188/111 H 100 - My Orders Last 24 Hours: My Active Orders 01/09/20 17:40 EKG Documentation Completion [RC] STAT 01/09/20 17:45 Sodium Chloride 0.9% [Normal Saline] 1,000 ml IV ASDIRECTED - Assessment/Plan Last 24 Hours: My Active Orders 01/09/20 17:40 EKG Documentation Completion [RC] STAT 01/09/20 17:45 Sodium Chloride 0.9% [Normal Saline] 1,000 ml IV ASDIRECTED
[2020-01-09] MEDS ORDERED: hydrALAZINE 20 MG/ML SDV IVPUSH ONE (17:39)
[2020-01-09] MEDS ORDERED: amLODIPine 10 MG Tab PO STA (17:40)
[2020-01-09] MEDS ORDERED: Losartan 100 MG Tab PO STA (17:41)
[2020-01-09] MEDS ORDERED: Sodium Chloride 0.9% 1,000 ML IV SCH (17:45)
[2020-01-09] MEDS ORDERED: HYDROmorphone 1 MG/ML Syringe IVPUSH ONE (17:56)
[2020-01-09] MEDS ORDERED: Metoclopramide 10 MG/2 ML SDV IVPUSH ONE (17:56)
[2020-01-09] MEDS ORDERED: diphenhydrAMINE 50 MG/ML SDV IVPUSH ONE (17:57)
--- NOTE | 2020-01-09 19:34 | CT ---
Head CT Technique: Multiple axial sections through the brain were obtained. Intravenous contrast was not utilized. Comparison: No prior intracranial imaging is available. Limitations: Small portion of the upper brain was not included on the exam. Findings: Intracranial: Ventricles along with basal cisterns and sulci over the convexities appear within normal limits for the patient's age. No abnormal parenchymal densities are seen. No evidence of intracranial hemorrhage. No midline shift or mass-effect is seen. Osseous: Bone window settings were reviewed. Air-fluid level is seen within the right maxillary sinus with fair amount of mucosal thickening. Mild mucosal thickening is seen anteriorly within the right ethmoid sinus. Visualized mastoid sinuses are clear. No acute calvarial finding is seen. Impression: 1. Findings within the right maxillary sinus suspicious for acute sinusitis. 2. No acute intracranial abnormality is appreciated. 3. Small portion of the upper brain was not included on the study. Diagnostic code #3
== END 2020-01-09 20:28 | disposition home or self-care (01) ==
LOC: JD.ED 15:16
DX: J01.00 Acute maxillary sinusitis, unspecified (principal); R51.9 Headache, unspecified; I10 Essential (primary) hypertension; Z79.899 Other long term (current) drug therapy
CPT/HCPCS: 36415; 70460; 70460-26; 80053; 81001; 83036; 84443; 84484; 85025; 86140; 93005; 93010; 96374; 96375; 99284; 99284-25; A9270-GY; J0360; J1170; J1200; J2765; J7030

== ENCOUNTER 2021-04-19 12:13 | Emergency (ER) | payer SELFPAY ==
[2021-04-19] MEDS ORDERED: Ketorolac 30 MG/ML SDV IM ONE (12:28)
== END 2021-04-19 13:15 | disposition home or self-care (01) ==
LOC: JD.ED 12:13
DX: M25.561 Pain in right knee (principal); I10 Essential (primary) hypertension; Z79.899 Other long term (current) drug therapy
CPT/HCPCS: 73564; 96372; 99283; J1885

== ENCOUNTER 2021-04-28 14:56 | Emergency (ER) | payer SELFPAY | END 2021-04-28 15:58 | disposition home or self-care (01) | LOC: JD.ED 14:56 | DX: M25.561 Pain in right knee (principal); I10 Essential (primary) hypertension; Z79.899 Other long term (current) drug therapy | CPT/HCPCS: 99283 ==